=== PATIENT | female | born 1995 | race Caucasian/White ===

== ENCOUNTER → 2021-07-25 | Outpatient (CLI) | payer OTHER ==
[2021-07-25 13:37] LABS: Source, Urine Clean Catch
[2021-07-25 15:23] LABS: Bacteria Few /hpf; Squamous Epithelial Cells Few /hpf (Few); White Blood Cells, Urine 0-2 /hpf (0-5)
[2021-07-25 15:33] LABS: U Amphetamine Screen Not Detected; U Barbituate Screen Not Detected; U Benzodiazapine Screen Not Detected; U Buprenorphine Screen Not Detected; U Cannabinoids Screen Not Detected; U Cocaine Screen Not Detected; U Methadone Screen Not Detected; U Methamphetamine Screen Not Detected; U Opiates Screen Not Detected; U Oxycodone Screen Not Detected; U Phencyclidine Screen Not Detected; U Propoxyphene Screen Not Detected
== END | disposition home or self-care (01) ==
LOC: LAB SHORT 09:50
PROVIDERS: Obstetrics & Gynecology
DX: Z34.01 Encounter for supervision of normal first pregnancy, first trimester (principal)
CPT/HCPCS: 81015; 87086

== ENCOUNTER → 2022-02-10 | Outpatient (CLI) | payer OTHER | END | disposition home or self-care (01) | LOC: LAB 11:24 → LAB SHORT 11:24 | DX: O09.893 Supervision of other high risk pregnancies, third trimester (principal) | CPT/HCPCS: 87081; 87150 ==

== ENCOUNTER 2022-03-06 22:13 | Inpatient (IN) | payer OTHER ==
[~2022-03-06] VITALS: Ht 167.6 cm; Wt 94.0 kg
[2022-03-07 00:05] LABS: BASOPHILS ABSOLUTE AUTO 0.02 K/mm3 (0.00-0.23); BASOPHILS PERCENT AUTO 0 % (0-2); EOSINOPHILS ABSOLUTE AUTO 0.09 K/mm3 (0.00-0.68); EOSINOPHILS PERCENT AUTO 1 % (0-6); Hemoglobin 13.2 g/dL (11.5-16.0); IMMATURE GRAN ABSOLUTE AUTO 0.04 K/mm3 (0.00-0.10); IMMATURE GRAN PERCENT AUTO 0 % (0-1); LYMPHOCYTES ABSOLUTE AUTO 2.34 K/mm3 (0.84-5.20); LYMPHOCYTES PERCENT AUTO 19 % (21-46); MONOCYTES ABSOLUTE AUTO 0.93 K/mm3 (0.16-1.47); MONOCYTES PERCENT AUTO 7 % (4-13); Mean Corpuscular HGB 30.3 pg (26.0-34.0); Mean Corpuscular HGB Conc 34.7 g/dL (31.5-36.5); Mean Corpuscular Volume 87 fL (80-100); Mean Platelet Volume 11.7 fL (9.1-12.4); NEUTROPHILS ABSOLUTE AUTO 9.23 K/mm3 (1.96-9.15); NEUTROPHILS PERCENT AUTO 73 % (41-73); Platelet Count 222 K/mm3 (150-400); RDW Coefficient Variation 13.2 % (11.7-14.2); RDW Standard Deviation 41.6 fL (35.1-46.3); Red Blood Cell Count 4.35 M/mm3 (3.80-5.20); White Blood Cell Count 12.65 K/mm3 (4.00-11.30)
[2022-03-07] MEDS ORDERED: OMEP20ER PO (01:41)
--- NOTE | 2022-03-07 08:24 | NUR ---
0730: UP TO BRP AND SHOWER. DALILA WELL. DENIES PAIN. DECLINES ANYTHING FOR PAIN AT THIS TIME. NO COMPLAINTS. BONDING WELL WITH NB AND DALILA NB CARE WELL.
[2022-03-07] MEDS ORDERED: DOCU100 PO (17:05)
[2022-03-07] MEDS ORDERED: IBUP800 PO (17:05)
[2022-03-07] MEDS ORDERED: PRENATAL TABLE1 EAC2 PO (17:05)
--- NOTE | 2022-03-08 11:41 | NUR ---
dc instructions reviewed with patient significant other and family. questions answered. will follow up with [facility] within 2 weeks. has elevated ppd score. used to be on meds for depression. went over depression education in details and feels she has support and knows to reach out to her provider if she feels that she may need to get back on them. will also return wednesday here at [facility] for ppfu. discharged secure in [facility] with parents.
== END 2022-03-08 11:30 | disposition home or self-care (01) | DRG 807 ==
LOC: OBS 22:13 → BC 22:17 → OBS 23:15 → BC 23:16
PROVIDERS: Family Medicine; ADMIT Obstetrics & Gynecology
PROC: 10E0XZZ Delivery of Products of Conception, External Approach (ICD-10-PCS; principal; 2022-03-07)
DX: O42.02 Full-term premature rupture of membranes, onset of labor within 24 hours of rupture (principal); Z37.0 Single live birth; O77.0 Labor and delivery complicated by meconium in amniotic fluid; O99.214 Obesity complicating childbirth; O99.344 Other mental disorders complicating childbirth; F41.8 Other specified anxiety disorders; O71.82 Other specified trauma to perineum and vulva; O99.62 Diseases of the digestive system complicating childbirth; K21.9 Gastro-esophageal reflux disease without esophagitis; Z3A.39 39 weeks gestation of pregnancy; Z98.84 Bariatric surgery status; Z79.899 Other long term (current) drug therapy
CPT/HCPCS: 36415; 59025; 85025; 86850; 86900; 86901; 87210; A9270; J2405; J2590; J3010; J7120

== ENCOUNTER 2023-06-25 22:31 | Emergency (ER) | payer OTHER ==
[~2023-06-25] VITALS: Ht 167.6 cm; Wt 108.9 kg
[~2023-06-25 22:31] MED LIST: DOCU100 PO; IBUP800 PO; OMEP20ER PO; PRENATAL TABLE1 EAC2 PO
[2023-06-25 22:38] VITALS: BP 141/98
[2023-06-26] MEDS ORDERED: BUPROPION HCL75 MG PO (02:09)
[2023-06-26] MEDS ORDERED: NEXPLANON68 MG SQ (02:10)
== END 2023-06-26 04:10 | disposition home or self-care (01) ==
LOC: ER 22:31
DX: S93.401A Sprain of unspecified ligament of right ankle, initial encounter (principal); S90.31XA Contusion of right foot, initial encounter; Z79.899 Other long term (current) drug therapy; W10.9XXA Fall (on) (from) unspecified stairs and steps, initial encounter; Y99.0 Civilian activity done for income or pay
CPT/HCPCS: 73630

== ENCOUNTER → 2024-03-02 | Outpatient (CLI) | payer OTHER ==
[~2024-03-02] MED LIST changes: +BUPROPION HCL75 MG PO; +NEXPLANON68 MG SQ
== END ==
LOC: LAB 15:20 → LAB SHORT 15:20
DX: N39.0 Urinary tract infection, site not specified (principal)
CPT/HCPCS: 87077; 87086; 87186